=== PATIENT | female | born 1975 | race Caucasian/White ===

== ENCOUNTER 2017-11-04 06:24 | Inpatient (IN) | payer BC, OTHER ==
[2017-11-04] MEDS: SOD CHLORIDE 0.9% 1,000 ML IV ×2 (06:49→09:27)
[2017-11-04] MEDS: morphine 4 MG/ML VIAL IV (06:49)
[2017-11-04] MEDS: ONDANSETRON 4 MG INJ IV ×2 (06:49→19:58)
[2017-11-04 07:26] LABS: ADD MAN DIFF? NO
[2017-11-04 07:29] LABS: WHITE BLOOD COUNT 10.2 10^3/ul (4.8-10.8)
[2017-11-04 07:29] LABS: BASOPHILS % 0.2 % (0.0-2.0); EOSINOPHILS # 0.1 10^3/ul (0.0-0.5); EOSINOPHILS % 1.2 % (0.0-7.0); HEMOGLOBIN 11.9 g/dl (12.0-16.0); LYMPHOCYTES # 1.5 10^3/ul (0.8-2.9); LYMPHOCYTES % 14.4 % (15.0-51.0); MEAN CORPUSCULAR HEMOGLOBIN 25.3 pg (29.0-33.0); MEAN CORPUSCULAR HGB CONC 32.2 g/dl (32.0-37.0); MEAN CORPUSCULAR VOLUME 78.6 fl (82.0-101.0); MEAN PLATELET VOLUME 10.3 fl (7.4-10.4); MONOCYTE # 0.8 10^3/ul (0.3-0.9); NEUTROPHIL # 7.8 10^3/ul (1.6-7.5); NEUTROPHILS % 75.9 % (39.0-77.0); PLATELET COUNT 363 10^3/UL (140-415); RED BLOOD COUNT 4.71 10^6/ul (4.20-5.40); RED CELL DISTRIBUTION WIDTH 18.4 % (11.5-14.5)
[2017-11-04 07:32] LABS: ADD UMIC YES; UR ASCORBIC ACID NEGATIVE (NEGATIVE); UR BILIRUBIN (Dip) NEGATIVE (NEGATIVE); UR BLOOD (Dip) 2+ mg/dL (NEGATIVE); UR CLARITY SLIGHTLY CLOUDY (CLEAR); UR COLOR AMBER (YELLOW); UR GLUCOSE (Dip) NEGATIVE (NEGATIVE); UR KETONES (Dip) NEGATIVE (NEGATIVE); UR LEUKOCYTE ESTERASE (Dip) NEGATIVE Leu/ul (NEGATIVE); UR NITRITE (Dip) NEGATIVE (NEGATIVE); UR RBC 2 /HPF (0-5); UR SPECIFIC GRAVITY (Dip) 1.008 (1.003-1.030); UR SQUAMOUS EPITHELIAL CELL FEW /HPF (FEW); UR TOTAL PROTEIN (Dip) NEGATIVE (NEGATIVE); UR UROBILINOGEN (Dip) 1+ mg/dL (NEGATIVE); UR WBC 2 /HPF (0-5)
[2017-11-04 08:09] LABS: ALANINE AMINOTRANSFERASE 392 IU/L (13-69); ALBUMIN 4.6 g/dl (3.3-4.9); ALBUMIN/GLOBULIN RATIO 1.21; ALKALINE PHOSPHATASE 410 IU/L (42-121); ANION GAP 16 (8-16); ASPARTATE AMINO TRANSFERASE 220 IU/L (15-46); BILIRUBIN,INDIRECT 0.8 mg/dl (0-1.1); BILIRUBIN,TOTAL 1.5 mg/dl (0.2-1.3); BLOOD UREA NITROGEN 9 mg/dl (7-20); CALCIUM 9.8 mg/dl (8.4-10.2); CARBON DIOXIDE 24 mmol/L (21-31); CHLORIDE 106 mmol/L (97-110); CREATININE 0.48 mg/dl (0.44-1.00); GLUCOSE 152 mg/dl (70-220); POTASSIUM 3.9 mmol/L (3.5-5.1); SODIUM 142 mmol/L (135-144); TOTAL PROTEIN 8.4 g/dl (6.1-8.1)
[2017-11-04 09:11] LABS: LIPASE 14988 U/L (23-300)
[2017-11-04] MEDS: CEFTRIAXONE 1 GM/50 ML (PMX) 50 ML IVPB (09:27)
[2017-11-04] MEDS ORDERED: NACL 0.9% 3 ML SYG IV (10:30)
[2017-11-04] MEDS ORDERED: GLUCOSE GEL 15 GRAM TUBE PO ×2 (11:00)
[2017-11-04] MEDS ORDERED: GLUCOSE GEL 15 GRAM TUBE BUCCAL (11:00)
[2017-11-04] MEDS ORDERED: DEXTROSE 50% 50 ML SYRINGE IV ×2 (11:00)
[2017-11-04] MEDS ORDERED: GLUCAGON 1 MG INJ IM (11:00)
[2017-11-04] MEDS: DEXTROSE 5%-0.45% NACL 1,000 ML IV (11:13)
[2017-11-04] MEDS: morphine 2 MG INJ IV ×2 (11:13→19:51)
[2017-11-04] MEDS: INSULIN ASPART [NOVOLOG] 3 ML PEN SC ×3 (12:00→20:02)
[2017-11-04 13:39] LABS: HEMOGLOBIN A1C 6.3 % (0-5.9)
[2017-11-05] MEDS: DEXTROSE 5%-0.45% NACL 1,000 ML IV ×3 (01:56→15:18)
[2017-11-05] MEDS: PANTOPRAZOLE 40 MG INJ IV (05:44)
[2017-11-05] MEDS: KETOROLAC 30 MG INJ IV ×2 (05:55→13:47)
[2017-11-05 06:04] LABS: ADD MAN DIFF? NO
[2017-11-05 06:12] LABS: WHITE BLOOD COUNT 9.2 10^3/ul (4.8-10.8)
[2017-11-05 06:12] LABS: BASOPHILS % 0.3 % (0.0-2.0); EOSINOPHILS # 0.2 10^3/ul (0.0-0.5); EOSINOPHILS % 1.9 % (0.0-7.0); HEMATOCRIT 32.9 % (37.0-47.0); HEMOGLOBIN 10.5 g/dl (12.0-16.0); LYMPHOCYTES # 2.6 10^3/ul (0.8-2.9); MEAN CORPUSCULAR HEMOGLOBIN 25.8 pg (29.0-33.0); MEAN CORPUSCULAR HGB CONC 31.9 g/dl (32.0-37.0); MEAN CORPUSCULAR VOLUME 80.8 fl (82.0-101.0); MEAN PLATELET VOLUME 10.1 fl (7.4-10.4); MONOCYTE # 0.9 10^3/ul (0.3-0.9); MONOCYTES % 9.7 % (0.0-11.0); NEUTROPHIL # 5.5 10^3/ul (1.6-7.5); NEUTROPHILS % 59.9 % (39.0-77.0); PLATELET COUNT 282 10^3/UL (140-415); RED BLOOD COUNT 4.07 10^6/ul (4.20-5.40); RED CELL DISTRIBUTION WIDTH 17.3 % (11.5-14.5)
[2017-11-05 06:33] LABS: ALANINE AMINOTRANSFERASE 233 IU/L (13-69); ALBUMIN 3.6 g/dl (3.3-4.9); ALBUMIN/GLOBULIN RATIO 1.09; ALKALINE PHOSPHATASE 321 IU/L (42-121); ANION GAP 12 (8-16); ASPARTATE AMINO TRANSFERASE 84 IU/L (15-46); BILIRUBIN,INDIRECT 0.7 mg/dl (0-1.1); BILIRUBIN,TOTAL 0.7 mg/dl (0.2-1.3); BLOOD UREA NITROGEN 9 mg/dl (7-20); CALCIUM 9.3 mg/dl (8.4-10.2); CARBON DIOXIDE 26 mmol/L (21-31); CHLORIDE 104 mmol/L (97-110); CREATININE 0.45 mg/dl (0.44-1.00); GLUCOSE 115 mg/dl (70-220); MAGNESIUM 1.9 mg/dl (1.7-2.5); POTASSIUM 3.7 mmol/L (3.5-5.1); SODIUM 138 mmol/L (135-144); TOTAL PROTEIN 6.9 g/dl (6.1-8.1)
[2017-11-05 07:06] LABS: LIPASE 2156 U/L (23-300)
[2017-11-05] MEDS: INSULIN ASPART [NOVOLOG] 3 ML PEN SC (08:00)
[2017-11-05] MEDS: PIPER-TAZO 3.375 GM IV (PMX) 100 ML IVPB ×3 (09:30→21:34)
[2017-11-06] MEDS: PIPER-TAZO 3.375 GM IV (PMX) 100 ML IVPB ×3 (05:43→21:10)
[2017-11-06] MEDS: PANTOPRAZOLE 40 MG INJ IV (05:43)
[2017-11-06 05:52] LABS: ADD MAN DIFF? NO
[2017-11-06 06:02] LABS: WHITE BLOOD COUNT 7.6 10^3/ul (4.8-10.8)
[2017-11-06 06:02] LABS: BASOPHILS % 0.4 % (0.0-2.0); EOSINOPHILS # 0.3 10^3/ul (0.0-0.5); EOSINOPHILS % 3.8 % (0.0-7.0); HEMOGLOBIN 9.7 g/dl (12.0-16.0); LYMPHOCYTES # 2.5 10^3/ul (0.8-2.9); LYMPHOCYTES % 32.2 % (15.0-51.0); MEAN CORPUSCULAR HEMOGLOBIN 25.1 pg (29.0-33.0); MEAN CORPUSCULAR HGB CONC 31.3 g/dl (32.0-37.0); MEAN CORPUSCULAR VOLUME 80.1 fl (82.0-101.0); MEAN PLATELET VOLUME 10.2 fl (7.4-10.4); MONOCYTE # 0.8 10^3/ul (0.3-0.9); MONOCYTES % 10.3 % (0.0-11.0); NEUTROPHIL # 4.1 10^3/ul (1.6-7.5); PLATELET COUNT 286 10^3/UL (140-415); RED BLOOD COUNT 3.87 10^6/ul (4.20-5.40); RED CELL DISTRIBUTION WIDTH 17.4 % (11.5-14.5)
[2017-11-06 06:37] LABS: LIPASE 971 U/L (23-300)
[2017-11-06 06:47] LABS: ALANINE AMINOTRANSFERASE 170 IU/L (13-69); ALBUMIN 3.4 g/dl (3.3-4.9); ALBUMIN/GLOBULIN RATIO 1.03; ALKALINE PHOSPHATASE 268 IU/L (42-121); ANION GAP 12 (8-16); ASPARTATE AMINO TRANSFERASE 38 IU/L (15-46); BILIRUBIN,INDIRECT 0.3 mg/dl (0-1.1); BILIRUBIN,TOTAL 0.3 mg/dl (0.2-1.3); BLOOD UREA NITROGEN 9 mg/dl (7-20); CALCIUM 8.9 mg/dl (8.4-10.2); CARBON DIOXIDE 26 mmol/L (21-31); CHLORIDE 105 mmol/L (97-110); CREATININE 0.53 mg/dl (0.44-1.00); GLUCOSE 110 mg/dl (70-220); MAGNESIUM 1.9 mg/dl (1.7-2.5); POTASSIUM 3.7 mmol/L (3.5-5.1); SODIUM 139 mmol/L (135-144); TOTAL PROTEIN 6.7 g/dl (6.1-8.1)
[2017-11-06] MEDS: DEXTROSE 5%-0.45% NACL 1,000 ML IV (08:59)
[2017-11-06] MEDS ORDERED: IOHEXOL 300MG/ML 30 ML BTL ×2 (18:23)
[2017-11-06] MEDS ORDERED: ONDANSETRON 4 MG INJ IV (18:30)
[2017-11-06] MEDS ORDERED: EPHEDrine SULFATE 50 MG/5 ML SYG IV (18:30)
[2017-11-06] MEDS ORDERED: HYDROmorphONE 1 MG/5 ML IV SYRINGE IV ×3 (18:30)
[2017-11-06] MEDS ORDERED: MEPERIDINE 25 MG INJ IV (18:30)
[2017-11-06] MEDS ORDERED: METOCLOPRAMIDE 10 MG INJ IV (18:30)
[2017-11-06] MEDS ORDERED: hydrALAzine 20 MG INJ IV (18:30)
[2017-11-06] MEDS ORDERED: FENTAnyl 50 MCG/ML VIAL IV ×3 (18:30)
[2017-11-06] MEDS ORDERED: LABETALOL HCL 20MG INJ IV (18:30)
[2017-11-06] MEDS ORDERED: DIPHENHYDRAMINE 50 MG INJ IV (18:30)
[2017-11-06] MEDS ORDERED: ROCURONIUM 50 MG INJ (18:31)
[2017-11-06] MEDS ORDERED: PROPOFOL 20 ML (18:31)
[2017-11-06] MEDS ORDERED: MIDAZOLAM 1 MG/ML 2 ML INJ (18:32)
[2017-11-06] MEDS ORDERED: FENTAnyl 50 MCG/ML VIAL (18:32)
[2017-11-06] MEDS: INDOMETHACIN 50 MG SUPP PR (18:46)
[2017-11-06] MEDS ORDERED: CEFAZOLIN 1 GM INJ (18:46)
[2017-11-06] MEDS ORDERED: LABETALOL HCL 20MG INJ (18:46)
[2017-11-06] MEDS ORDERED: ONDANSETRON 4 MG INJ (18:46)
[2017-11-06] MEDS ORDERED: SUGAMMADEX SODIUM 200 MG/2 ML VIAL IV (18:47)
[2017-11-06] MEDS ORDERED: DEXAMETHASONE 4 MG/ML 1 ML INJ (18:47)
[2017-11-06] MEDS ORDERED: METOCLOPRAMIDE 10 MG INJ (18:47)
[2017-11-07] MEDS: DEXTROSE 5%-0.45% NACL 1,000 ML IV ×2 (01:07→13:32)
[2017-11-07] MEDS: PANTOPRAZOLE 40 MG INJ IV (05:11)
[2017-11-07] MEDS: PIPER-TAZO 3.375 GM IV (PMX) 100 ML IVPB ×2 (05:11→13:32)
[2017-11-07 05:47] LABS: ADD MAN DIFF? NO
[2017-11-07 05:52] LABS: BASOPHILS % 0.1 % (0.0-2.0); HEMATOCRIT 33.7 % (37.0-47.0); HEMOGLOBIN 10.7 g/dl (12.0-16.0); LYMPHOCYTES # 1.1 10^3/ul (0.8-2.9); LYMPHOCYTES % 15.4 % (15.0-51.0); MEAN CORPUSCULAR HEMOGLOBIN 25.6 pg (29.0-33.0); MEAN CORPUSCULAR HGB CONC 31.8 g/dl (32.0-37.0); MEAN CORPUSCULAR VOLUME 80.6 fl (82.0-101.0); MEAN PLATELET VOLUME 10.1 fl (7.4-10.4); MONOCYTE # 0.3 10^3/ul (0.3-0.9); MONOCYTES % 3.8 % (0.0-11.0); NEUTROPHILS % 80.6 % (39.0-77.0); PLATELET COUNT 302 10^3/UL (140-415); RED BLOOD COUNT 4.18 10^6/ul (4.20-5.40); RED CELL DISTRIBUTION WIDTH 16.4 % (11.5-14.5)
[2017-11-07 05:52] LABS: WHITE BLOOD COUNT 7.4 10^3/ul (4.8-10.8)
[2017-11-07 06:11] LABS: ALANINE AMINOTRANSFERASE 127 IU/L (13-69); ALBUMIN 3.6 g/dl (3.3-4.9); ALBUMIN/GLOBULIN RATIO 1.28; ALKALINE PHOSPHATASE 242 IU/L (42-121); ANION GAP 13 (8-16); ASPARTATE AMINO TRANSFERASE 25 IU/L (15-46); BILIRUBIN,INDIRECT 0.4 mg/dl (0-1.1); BILIRUBIN,TOTAL 0.4 mg/dl (0.2-1.3); BLOOD UREA NITROGEN 9 mg/dl (7-20); CALCIUM 9.5 mg/dl (8.4-10.2); CARBON DIOXIDE 24 mmol/L (21-31); CHLORIDE 108 mmol/L (97-110); CREATININE 0.46 mg/dl (0.44-1.00); GLUCOSE 125 mg/dl (70-220); MAGNESIUM 1.9 mg/dl (1.7-2.5); POTASSIUM 4.3 mmol/L (3.5-5.1); SODIUM 141 mmol/L (135-144); TOTAL PROTEIN 6.4 g/dl (6.1-8.1)
[2017-11-07 06:22] LABS: LIPASE 335 U/L (23-300)
[2017-11-07] MEDS: ACETAMINOPHEN 325 MG TAB PO (08:42)
== END 2017-11-07 18:30 | disposition home or self-care (01) | DRG 440 ==
LOC: FTE 06:24 → 6WM 10:22
PROC: 0FC98ZZ Extirpation of Matter from Common Bile Duct, Via Natural or Artificial Opening Endoscopic (ICD-10-PCS; principal; 2017-11-06 18:28)
DX: K85.10 Biliary acute pancreatitis without necrosis or infection (principal); K80.70 Calculus of gallbladder and bile duct without cholecystitis without obstruction; K21.9 Gastro-esophageal reflux disease without esophagitis; E11.9 Type 2 diabetes mellitus without complications; I10 Essential (primary) hypertension
CPT/HCPCS: 36415; 74181; 74330; 76705; 80053; 81001; 81025; 82962; 83036; 83690; 83735; 85025; 96361; 96365; 96375; 99285-25

== ENCOUNTER 2018-07-06 07:12 | Day surgery (SDC) | payer BC ==
[2018-07-06] MEDS: CEFAZOLIN 2 GM/50 ML (PMX) 50 ML IVPB (07:30)
[2018-07-06] MEDS: SOD CHLORIDE 0.9% 1,000 ML IV (08:17)
[2018-07-06] MEDS ORDERED: SUCCINYLCHOLINE CHLORIDE 100 MG/5 ML SYG IV (08:36)
[2018-07-06] MEDS ORDERED: ROCURONIUM 50 MG INJ (08:36)
[2018-07-06] MEDS ORDERED: MIDAZOLAM 1 MG/ML 2 ML INJ (08:36)
[2018-07-06] MEDS ORDERED: DEXAMETHASONE 4 MG/ML 5 ML INJ (08:37)
[2018-07-06] MEDS ORDERED: ONDANSETRON 4 MG INJ (08:37)
[2018-07-06] MEDS ORDERED: SUGAMMADEX SODIUM 200 MG/2 ML VIAL IV (08:37)
[2018-07-06] MEDS ORDERED: PROPOFOL 20 ML (08:38)
[2018-07-06] MEDS ORDERED: LIDOCAINE 100 MG SYRINGE (09:14)
[2018-07-06] MEDS ORDERED: CEFAZOLIN 1 GM INJ (09:21)
[2018-07-06] MEDS: BUPIVACAINE 0.25%/EPI (SDV) 30 ML INJ (09:27)
[2018-07-06] MEDS ORDERED: DIPHENHYDRAMINE 50 MG INJ IV (09:30)
[2018-07-06] MEDS ORDERED: LABETALOL HCL 20MG INJ IV (09:30)
[2018-07-06] MEDS ORDERED: HYDROmorphONE 1 MG/5 ML IV SYRINGE IV (09:30)
[2018-07-06] MEDS ORDERED: ONDANSETRON 4 MG INJ IV (10:30)
[2018-07-06] MEDS ORDERED: HYDROCODONE/APAP (5/325) TAB PO (10:30)
[2018-07-06] MEDS ORDERED: morphine 2 MG INJ IV (10:30)
[2018-07-06] MEDS: HYDROmorphONE 1 MG/5 ML IV SYRINGE IV ×2 (10:46→10:51)
[2018-07-06] MEDS: ONDANSETRON 4 MG INJ IV (10:47)
[2018-07-06] MEDS: MEPERIDINE 25 MG INJ IV (10:56)
[2018-07-06] MEDS: KETOROLAC 30 MG INJ IV (11:03)
[2018-07-06] MEDS: HYDROCODONE/APAP (5/325) TAB PO (12:14)
== END 2018-07-06 12:34 | disposition home or self-care (01) ==
LOC: SDS 07:12
DX: K80.10 Calculus of gallbladder with chronic cholecystitis without obstruction (principal); I10 Essential (primary) hypertension; E11.9 Type 2 diabetes mellitus without complications
CPT/HCPCS: 47562; 82962; 88304